=== PATIENT | male | born 1990 | race Caucasian/White ===

== ENCOUNTER 2020-09-21 10:14 | Emergency (ER) | payer OTHER ==
[~2020-09-21] VITALS: Ht 170.2 cm; Wt 65.9 kg
[2020-09-21] MEDS ORDERED: NS 1,000 ML IV ONE (12:00)
[2020-09-21 12:32] LABS: BASO # 0.1 10^3/uL (0.0-0.2); BASO % 0.7 % (0.0-1.0); EOS # 0.3 10^3/uL (0.0-0.5); EOS % 3.5 % (0.0-3.0); HEMATOCRIT 45.9 % (42.0-52.0); HEMOGLOBIN 15.7 g/dl (13.5-17.5); LYMPH # 2.4 10^3/uL (1.5-5.0); LYMPH % 32.9 % (24.0-44.0); MEAN CORPUSCULAR HEMOGLOBIN 30.4 pg (27.0-33.0); MEAN CORPUSCULAR HGB CONC 34.2 g/dl (32.0-36.5); MEAN CORPUSCULAR VOLUME 88.8 fl (80.0-96.0); MONO # 0.5 10^3/uL (0.0-0.8); MONO % 6.8 % (2.0-8.0); NEUTROPHILS # 4.1 10^3/uL (1.5-8.5); NEUTROPHILS % 55.7 % (36.0-66.0); PLATELET COUNT, AUTOMATED 315 10^3/uL (150-450); RED BLOOD COUNT 5.17 10^6/uL (4.30-6.10); WHITE BLOOD COUNT 7.3 10^3/uL (4.0-10.0)
[2020-09-21 12:54] LABS: ALBUMIN 4.2 GM/DL (3.2-5.2); ALT/SGPT 40 U/L (12-78); BILIRUBIN,DIRECT 0.1 MG/DL (0.0-0.2); BLOOD UREA NITROGEN 13 MG/DL (7-18); CALCIUM LEVEL 9.3 MG/DL (8.5-10.1); CARBON DIOXIDE LEVEL 31 MEQ/L (21-32); CHLORIDE LEVEL 102 MEQ/L (98-107); CPK CREATINE PHOSPHOKINASE 457 U/L (39-308); CREATININE FOR GFR 1.07 MG/DL (0.70-1.30); GLOMERULAR FILTRATION RATE > 60.0 (>60); GLUCOSE, FASTING 84 MG/DL (70-100); LIPASE 271 U/L (73-393); POTASSIUM SERUM 4.2 MEQ/L (3.5-5.1); SODIUM LEVEL 136 MEQ/L (136-145); TOTAL PROTEIN 7.2 GM/DL (6.4-8.2)
--- NOTE | 2020-09-21 13:38 | REP ---
INDICATION: R epididymal tenderness, hematuria. COMPARISON: None. TECHNIQUE: Real-time sonographic evaluation of scrotum and contents is performed. FINDINGS: The testicles are normal in size and echotexture, right testicle measuring 4.9 x 2.4 x 3.3 cm and left testicle 4.9 x 2.2 x 3.0 cm. There is no testicular mass or torsion. Blood flow is seen in each testicle with duplex Doppler evaluation. There is no compelling sonographic evidence of epididymitis or orchitis. No fluid collection is seen. Two cystic structures are seen in the head of the left epididymis, measuring 6 mm and 3 mm in maximum diameter. IMPRESSION: No testicular mass or torsion. No compelling sonographic evidence of epididymitis or orchitis. Two subcentimeter cysts are seen in the left epididymis. <Electronically signed by Corky Sanabria > 09/21/20 [id number]
--- NOTE | 2020-09-21 16:12 | REP ---
INDICATION: hematuria, r/o stones COMPARISON: None TECHNIQUE: Axial noncontrast images from the lung bases to the pubic symphysis with coronal and sagittal reformations. This CT examination was performed using the following dose reduction techniques: Automated exposure control, adjustment of mA and/or kv according to the patient's size, and use of iterative reconstruction technique. FINDINGS: Liver, spleen, pancreas, gallbladder, bilateral adrenal glands and right kidney are normal. Left kidney includes few small nonobstructing intrarenal calculi up to 2 mm. No hydroureteronephrosis, perinephric stranding or obstructing ureteral calculi identified. The enteric system is without obstruction or acute inflammatory process although moderate fecal stasis is suggested and should be correlated clinically. Normal terminal ileum and appendix identified in the right lower quadrant. Pelvis demonstrates normal bladder and age-appropriate prostate/seminal vesicles. No ascites. No free air. No adenopathy. Abdominal aorta without aneurysm. Musculoskeletal structures are intact. Lung bases are clear. IMPRESSION: 1. Few nonobstructing left renal calculi up to 2 mm. 2. Otherwise normal noncontrast CT of the abdomen and pelvis. <Electronically signed by Raymodn Joel > 09/21/20 [id number]
[2020-09-21] MEDS ORDERED: CIPR500T39 PO (16:24)
[2020-09-21 16:32] VITALS: BP 136/91
[2020-09-24 16:22] LABS: MYOGLOBIN URINE QUANTITATIVE < 2 ng/mL (0-13)
== END 2020-09-21 17:16 | disposition home or self-care (01) ==
LOC: M ED 10:14
DX: N20.0 Calculus of kidney (principal); N50.3 Cyst of epididymis; R74.8 Abnormal levels of other serum enzymes; F17.200 Nicotine dependence, unspecified, uncomplicated